=== PATIENT | male | born 1960 | race Caucasian/White ===

== ENCOUNTER 2017-06-25 17:39 | Emergency (ER) ==
[2017-06-25 17:48] VITALS: BP 171/98; TEMP 99.3; BMI 31.0
--- NOTE | 2017-06-25 18:00 | ED.PDOC ---
General ED Provider: Dr. DARELL LESLIE Chief Complaint: Head Laceration Stated Complaint: HEAD LACERATION/TRAUMA Time Seen by Physician: 17:59 (NO NECK PAIN NO LOC) Information Source: Patient Exam Limitations: No limitations Primary Care Provider: AMIE PALAFOX Nursing and Triage Documentation Reviewed and Agree: Yes Reviewed sepsis parameters & appropriate labs ordered?: Yes System Inflammatory Response Syndrome: Not Applicable Sepsis Protocol: For patient's 13 years and over: Temp is 96.8 and below OR 101 and greater Pulse >90 BPM Resp >20/minute Acutely Altered Mental Status Are patient's symptoms suggestive of a new infection, such as: -Pneumonia -Skin, Soft Tissue -Endocarditis -UTI -Bone, Joint Infection -Implantable Device -Acute Abdominal Infection -Wound Infection -Meningitis -Blood Stream Catheter Infection -Unknown System Inflammatory Response Syndrome: Not Applicable Trauma/Injury Complaint Exam - Head Injury Complaint/Exam Location of Pain: Reports: Scalp Mechanism of Injury: Reports: Trauma (BLUNT FORCE CAUSE A PUNCTURE WOUND) Onset/Duration: 1 HR AGO Symptoms Are: Still present Initial Severity: Mild Current Severity: Mild Character: Reports: Dull Aggravating: Reports: None Alleviating: Reports: None Associated Signs and Symptoms: Denies: Confusion, Memory loss, Seizure, Epistaxis, Dental malocclusion, Neck pain, Nausea, Vomiting Loss of Consciousness: None SDH Risk Factors: Present: Male Glascow Coma Scale (see protocol): 15 Focal Weakness: Present: None Focal Sensory Loss: Present: None Gait: Normal Finger to Nose: Normal Babinski Sign: Negative Right, Negative Left Nexus Low Risk Criteria: No post-midline CS tender, No evidence of intoxicat., No Altered LOC, No focal neuro deficit, No distracting injuries Review of Systems - Review Of Systems Constitutional: Reports: No symptoms Eyes: Reports: No symptoms Ears, Nose, Mouth, Throat: Reports: No symptoms Respiratory: Reports: No symptoms Cardiac: Reports: No symptoms GI: Reports: No symptoms : Reports: No symptoms Musculoskeletal: Reports: No symptoms Skin: Reports: No symptoms Neurological: Reports: No symptoms Endocrine: Reports: No symptoms Hematologic/Lymphatic: Reports: No symptoms All Other Systems: Reviewed and Negative Past Medical History - Past Medical History Previously Healthy: Yes Endocrine: Reports: None Cardiovascular: Reports: None Respiratory: Reports: None Hematological: Reports: None Gastrointestinal: Reports: None Genitourinary: Reports: None Neuro/Psych: Reports: None Musculoskeletal: Reports: None Cancer: Reports: None - Surgical History General Surgical History: Reports: None - Family History Family History: Reports: None - Social History Smoking Status: Never smoker Hx Substance Use: No Alcohol Screening: Occasionally - Immunizations Tetanus Shot up to Date: (2010) Physical Exam - Physical Exam Appearance: Well-appearing, No pain distress, Well-nourished Eyes: SALTY, EOMI, Conjunctiva clear ENT: Ears normal, Nose normal, Oropharynx normal Respiratory: Airway patent, Breath sounds clear, Breath sounds equal, Respirations nonlabored Cardiovascular: RRR, Pulses normal, No rub, No murmur GI/: Soft, Nontender, No masses, Bowel sounds normal, No Organomegaly Musculoskeletal: Normal strength, ROM intact, No edema, No calf tenderness Skin: Warm (0.3 CM LACERATION), Dry, Normal color Neurological: Sensation intact, Motor intact, Reflexes intact, Cranial nerves intact, Alert, Oriented Psychiatric: Affect appropriate, Mood appropriate Critical Care Note - Critical Care Note Total Time (mins): 0 Course - Course Vital Signs: Temp Pulse Resp BP Pulse Ox 06/25/17 17:40 99.3 F 81 20 171/98 H 96 Departure - Departure Time of Disposition: 19:00 (SCALP WOUND DERMABONDED ) Disposition: HOME SELF-CARE Discharge Problem: Head injury Qualifiers: Encounter type: initial encounter Qualified Code(s): S09.90XA - Unspecified injury of head, initial encounter Puncture wound of scalp Qualifiers: Encounter type: initial encounter Qualified Code(s): S01.03XA - Puncture wound without foreign body of scalp, initial encounter Condition: Good Pt referred to PMD for follow-up: Yes IPMP verified?: No Additional Instructions: Please call your Family Physician as soon as possible to schedule a follow-up appointment. Allergies/Adverse Reactions: Allergies Penicillins Adverse Reaction (Verified 06/25/17 17:48) Home Medications: Ambulatory Orders Allopurinol [Zyloprim] 100 mg PO BID 05/09/13 Colchicine [Colcrys] 0.6 mg PO DAILY PRN 05/10/13 Enalapril Maleate [Vasotec] 5 mg PO BID 05/10/13 Multivitamin [Multi-Vitamin Daily] 1 each PO DAILY #30 tablet 05/10/13 Esomeprazole Magnesium [Nexium] 40 mg PO DAILY 09/05/14 Atorvastatin Calcium [Lipitor] 20 mg PO BEDTIME 06/25/17 Disposition Discussed With: Patient
--- NOTE | 2017-06-25 18:25 | CT ---
EXAM: CT head without contrast HISTORY: Injury COMPARISON: None TECHNIQUE: Serial axial images of the brain were obtained from the skull base to the vertex without IV contrast. FINDINGS: The ventricles, cisterns and sulci are normal. The pena-white matter junction is well dante ntained. No midline shift or mass is identified. There is no abnormal intra or extra-axial fluid co llection. The paranasal sinuses and mastoid air cells are clear. The osseous calvarium is intact. IMPRESSION: No acute intracranial abnormality or hemorrhage.
== END 2017-06-25 18:54 | disposition home or self-care (01) ==
LOC: ED 17:39
DX: S09.90XA Unspecified injury of head, initial encounter (principal); S01.03XA Puncture wound without foreign body of scalp, initial encounter; W22.8XXA Striking against or struck by other objects, initial encounter
CPT/HCPCS: 99283

== ENCOUNTER → 2017-11-16 | Outpatient (REF) | LOC: NONPT 15:39 | DX: Z02.89 Encounter for other administrative examinations (principal) | CPT/HCPCS: 36415; 80053; 80061; 82947; 83036; 83540; 84100; 84550; 85025; 86140; G0103 ==

== ENCOUNTER 2018-06-27 14:20 | Outpatient (CLI) | END 2018-06-27 14:21 | disposition home or self-care (01) | LOC: RHC-LAB 14:20 → FCC-LAB 14:21 | PROVIDERS: ATTEND Nurse Practitioner Family | DX: R05 Cough (principal) | CPT/HCPCS: 87502 ==